=== PATIENT | female | born 1965 | race Caucasian/White ===

== ENCOUNTER 2018-11-05 01:19 | Emergency (ER) | payer OTHER ==
[2018-11-05 01:54] VITALS: TEMP 97.7; BMI 22.8
--- NOTE | 2018-11-05 02:17 | PDOC ---
History of Present Illness - General Chief Complaint: Palpitations Stated Complaint: PALPITATION Time Seen by Provider: 11/05/18 02:16 - History of Present Illness Initial Comments: 11/05/18 02:16 Ms. Stevens is a 53 yo female w/ pmh of recent dx of hyperthyroidism (on methimazole for 1 month) who presents for evaluation of 2 night history of palpitations. Patient reports symptoms started last night and self resolved. Symptoms started again around 1am this morning and resolved prior to presentation at ER. The patient denies chest pain, shortness of breath, headache and dizziness. Denies fever, chills, nausea, vomit, diarrhea and constipation. Denies dysuria, frequency, urgency and hematuria. Past History - Past Medical History Allergies/Adverse Reactions: Allergies Allergy/AdvReac Type Severity Reaction Status Date / Time No Known Allergies Allergy Verified 11/05/18 01:41 Home Medications: Ambulatory Orders Methimazole 5 mg PO DAILY 11/05/18 - Suicide/Smoking/Psychosocial Hx Smoking History: Never smoked Have you smoked in the past 12 months: No Information on smoking cessation initiated: No Hx Alcohol Use: No Drug/Substance Use Hx: No Review of Systems - Review of Systems Comments:: 11/05/18 02:17 GENERAL/CONSTITUTIONAL: No fever or chills. No weakness. HEAD, EYES, EARS, NOSE AND THROAT: No change in vision. No ear pain or discharge. No sore throat. CARDIOVASCULAR: +Palpitations as described now resolved. No chest pain or shortness of breath RESPIRATORY: No cough, wheezing, or hemoptysis. GASTROINTESTINAL: No nausea, vomiting, diarrhea or constipation. GENITOURINARY: No dysuria, frequency, or change in urination. MUSCULOSKELETAL: No joint or muscle swelling or pain. No neck or back pain. SKIN: No rash NEUROLOGIC: No headache, vertigo, loss of consciousness, or change in strength/ sensation. ENDOCRINE: No increased thirst. No abnormal weight change HEMATOLOGIC/LYMPHATIC: No anemia, easy bleeding, or history of blood clots. ALLERGIC/IMMUNOLOGIC: No hives or skin allergy. *Physical Exam - Vital Signs Last Vital Signs Temp Pulse Resp BP Pulse Ox 97.7 F 83 18 130/74 99 11/05/18 01:25 11/05/18 01:25 11/05/18 01:25 11/05/18 01:25 11/05/18 01:25 - Physical Exam Comments: 11/05/18 02:17 GENERAL: Awake, alert, and fully oriented, in no acute distress HEAD: No signs of trauma, normocephalic, atraumatic EYES: PERRLA, EOMI, sclera anicteric, conjunctiva clear ENT: Auricles normal inspection, hearing grossly normal, nares patent, oropharynx clear without exudates. Moist mucosa NECK: Normal ROM, supple, no lymphadenopathy, JVD, or masses LUNGS: No distress, speaks full sentences, clear to auscultation bilaterally HEART: Regular rate and rhythm, normal S1 and S2, no murmurs, rubs or gallops, peripheral pulses normal and equal bilaterally. ABDOMEN: Soft, nontender, normoactive bowel sounds. No guarding, no rebound. No masses EXTREMITIES: Normal inspection, Normal range of motion, no edema. No clubbing or cyanosis. NEUROLOGICAL: Cranial nerves II through XII grossly intact. Normal speech, normal gait, no focal sensorimotor deficits SKIN: Warm, Dry, normal turgor, no rashes or lesions noted. ED Treatment Course - LABORATORY CBC & Chemistry Diagram: 11/05/18 02:36 11/05/18 02:36 Medical Decision Making - Medical Decision Making 11/05/18 06:17 Ms. Stevens is a 53 yo female w/ pmh as described who presents for evaluation of palpitations. Patient evaluated with cardiac labs and EKG. EKG normal sinus. Concern for acute process low at this time. Initial cardiac labs negative. Patient given aspirin for prophylaxis. Patient currently pending 3 hour troponin for discharge for outpatient follow-up. 11/05/18 06:52 Repeat troponin negative. Patient will f/u w/ PCP for further evaluation. Discharging to home. *DC/Admit/Observation/Transfer Diagnosis at time of Disposition: Palpitations - Discharge Dispostion Disposition: HOME - Referrals Referrals: Derick Blackman MD [Primary Care Provider] - - Patient Instructions Printed Discharge Instructions: DI for Palpitations Additional Instructions: You were evaluated today in the ER for your palpitations. We performed EKG as well as cardiac labs with no concerning findings. We believe you are safe for discharge at this time. Please follow-up early next week with primary care provider for further evaluation as you may need testing with a holter monitor for further evaluation. Return to ER if any fever, chills, return of palpitations, chest pain, or other concerning symptoms. - Post Discharge Activity
[2018-11-05 02:51] LABS: BASO % 0.4 % (0-2.0); HEMATOCRIT 39.3 % (32.4-45.2); LYMPH % 24.7 % (8-40); MCHC 33.1 g/dl (32.0-36.0); MEAN CELL VOLUME 81.6 fl (80-96); MEAN PLT VOLUME 9.5 fl (7.5-11.1); MONO % 6.8 % (3.8-10.2); NEUT % 66.1 % (42.8-82.8); PLATELET COUNT 223 K/MM3 (134-434); RBC 4.82 M/mm3 (3.60-5.2); WHITE BLOOD COUNT 5.6 K/mm3 (4.0-10.0)
[2018-11-05 03:18] LABS: ALBUMIN 3.6 g/dl (3.4-5.0); ALK PHOS 104 U/L (45-117); ANION GAP 6 MMOL/L (8-16); BILIRUBIN,TOTAL 0.3 mg/dL (0.2-1); BLOOD UREA NITROGEN 12.6 mg/dL (7-18); CALCIUM 8.8 mg/dL (8.5-10.1); CHLORIDE 109 mmol/L (98-107); CO2 28 mmol/L (21-32); CREATININE 0.6 mg/dL (0.55-1.3); GLUCOSE,RANDOM 94 mg/dL (74-106); POTASSIUM 3.6 mmol/L (3.5-5.1); SGOT/AST 22 U/L (15-37); SGPT/ALT 29 U/L (13-61); SODIUM 142 mmol/L (136-145); TOT PROT 6.9 g/dl (6.4-8.2)
[2018-11-05] MEDS ORDERED: ASPIRIN 81 MG CHEWABLE TABLETS PO ONE (04:18)
--- NOTE | 2018-11-05 04:20 | PDOC ---
Attending Attestation - Resident Resident Name: Pollo Dewitt - ED Attending Attestation I have performed the following: I have examined & evaluated the patient, The case was reviewed & discussed with the resident, I agree w/resident's findings & plan, Exceptions are as noted - HPI HPI: 11/05/18 04:17 53 F with h/o hyperthyroidism presenting to ED with palpitations. Pt states that she has had intermittent heart-racing sensation over the past few days. States that she has about one episode per day, lasting a few minutes at a time. She endorses some pressure-like chest pain associated with the palpitations. Denies SOB. Pt states that she had an episode tonight that lasted about 20 minutes, prompting her to come to the ER. Denies any symptoms at this time. Pt denies leg swelling/calf pain. No h/o DVT/PE. Denies any F/C. - Physicial Exam PE: 11/05/18 04:19 "GENERAL: Awake, alert, and fully oriented, in no acute distress. HEAD: No signs of trauma EYES: PERRLA, EOMI, sclera anicteric, conjunctiva clear ENT: Auricles normal inspection, hearing grossly normal, nares patent, oropharynx clear without exudates. Moist mucosa NECK: Nontender, no stepoffs, Normal ROM, supple, no lymphadenopathy, JVD, or masses LUNGS: Breath sounds equal, clear to auscultation bilaterally. No wheezes, and no crackles HEART: Regular rate and rhythm, normal S1 and S2, no murmurs, rubs or gallops ABDOMEN: Soft, nontender, normoactive bowel sounds. No guarding, no rebound. No masses EXTREMITIES: Normal range of motion, no edema. No clubbing or cyanosis. No cords, erythema, or tenderness NEUROLOGICAL: Cranial nerves II through XII intact. 5/5 strength and sensation in all extremities, Normal speech, normal gait, normal cerebellar function SKIN: Warm, Dry, normal turgor, no rashes or lesions noted. - Medical Decision Making 11/05/18 04:19 53 F with intermittent palpitations. EKG in ED is NSR. Possible paroxysmal tachyarrhythmia. Will r/o ACS given chest pressure, though pt with no risk factors. Pt HD stable, normal vitals. No PE risk factors. - labs, trop x2 11/05/18 06:20 Labs wnl Pt reassessed - has not had any recurrence of palpitations, no complaints at this time Pt is well appearing, with normal vitals. Clinically stable for DC at this time. I discussed the physical exam findings, ancillary test results and final diagnoses with the patient. I answered all of the patient's questions. The patient was satisfied with the care received and felt comfortable with the discharge plan and treatment plan. The patient agrees to follow up with the primary care physician within 24-72 hours.
[2018-11-05] MEDS ORDERED: ASPIRIN 81 MG CHEWABLE TABLETS ONE (04:30)
[2018-11-05 05:50] VITALS: BP 100/62; PULSE 71
--- NOTE | 2018-11-05 13:00 | EKG ---
Test Reason : Blood Pressure : / mmHG Vent. Rate : 076 BPM Atrial Rate : 076 BPM P-R Int : 156 ms QRS Dur : 088 ms QT Int : 370 ms P-R-T Axes : 071 067 050 degrees QTc Int : 416 ms NORMAL SINUS RHYTHM NORMAL ECG WHEN COMPARED WITH ECG OF 05-FEB-2003 16:11, NO SIGNIFICANT CHANGE WAS FOUND Confirmed by MD SALINAS MOYSES ([id number]) on 11/05/2018 1:00:41 PM Referred By: Confirmed By:MUMTAZ SALINAS MD
== END 2018-11-05 06:56 | disposition home or self-care (01) ==
LOC: JER 01:19
DX: R00.2 Palpitations (principal); E07.9 Disorder of thyroid, unspecified
CPT/HCPCS: 36415; 80053; 82550; 84484; 85025; 93005; 93010; 99282-25

== ENCOUNTER 2022-11-03 14:20 | Emergency (ER) | payer OTHER ==
[2022-11-03 14:57] VITALS: BP 124/69; PULSE 74; RESP 18; TEMP 98; BMI 24.2
[2022-11-03] MEDS ORDERED: MECLIZINE HCL 25 MG TABLET (FP) PO ONE (16:25)
[2022-11-03] MEDS ORDERED: LACTATED RINGERS SOLUTION 1000 ML INFUS.BAG IV ONE (16:25)
[2022-11-03] MEDS ORDERED: METOCLOPRAMIDE HCL INJECTION 10 MG/2 ML VIAL IVPUSH ONE (16:40)
[2022-11-03] MEDS ORDERED: MECLIZINE HCL 25 MG TABLET (FP) ONE (16:43)
[2022-11-03] MEDS ORDERED: METOCLOPRAMIDE HCL INJECTION 10 MG/2 ML VIAL ONE (16:59)
[2022-11-03 18:02] LABS: BASO % 0.2 % (0-2.0); EOS % 0.2 % (0-4.5); HEMATOCRIT 39.5 % (32.4-45.2); HEMOGLOBIN 13.4 GM/dL (10.7-15.3); LYMPH % 6.7 % (8-40); MCH 27.4 pg (25.7-33.7); MCHC 33.8 g/dl (32.0-36.0); MEAN CELL VOLUME 81.2 fl (80-96); MEAN PLT VOLUME 9.1 fl (7.5-11.1); MONO % 2.1 % (3.8-10.2); NEUT % 90.8 % (42.8-82.8); PLATELET COUNT 237 10^3/uL (134-434); RBC 4.87 M/mm3 (3.60-5.2); RDW 14.7 % (11.6-15.6); WHITE BLOOD COUNT 10.2 K/mm3 (4.0-10.0)
[2022-11-03 18:50] LABS: POTASSIUM 4.3 mmol/L (3.5-5.1)
[2022-11-03 18:51] LABS: CALCIUM 9.4 mg/dL (8.5-10.1)
[2022-11-03 18:52] LABS: BLOOD UREA NITROGEN 12.5 mg/dL (7-18)
[2022-11-03 18:55] LABS: CREATININE 0.6 mg/dL (0.55-1.3)
[2022-11-03 18:57] LABS: BILIRUBIN,TOTAL 0.4 mg/dL (0.2-1); TOT PROT 7.3 g/dl (6.4-8.2)
== END 2022-11-03 20:59 | disposition home or self-care (01) ==
LOC: JER 14:20
PROC: 3E033GC Introduction of Other Therapeutic Substance into Peripheral Vein, Percutaneous Approach (ICD-10-PCS; principal; 2022-11-03)
DX: R42 Dizziness and giddiness (principal); R11.10 Vomiting, unspecified; R09.81 Nasal congestion
CPT/HCPCS: 36415; 80053; 83735; 85025; 93005; 93010; 99284-25